=== PATIENT | female | born 1955 | race Caucasian/White ===

== ENCOUNTER 2018-03-15 14:09 | Inpatient (IN) | payer OTHER ==
[2018-03-15] MEDS ORDERED: Sodium Chloride 0.9% 1,000 ML IV ONE ×3 (14:59→20:13)
[2018-03-15] MEDS ORDERED: Sodium Chloride 0.9% 1,000 ML ONE (15:23)
[2018-03-15 15:26] LABS: BASO # 0.1 K/uL (0.0-0.2); BASO % 0.2 % (0.0-2.0); EOS # 0.1 K/uL (0.0-0.7); EOS % 0.2 % (0.0-4.0); HEMOGLOBIN 12.1 g/dL (11.0-16.0); LYMPH # 0.6 K/uL (1.0-4.3); LYMPH % 2.6 % (20.0-40.0); MEAN CELL VOLUME 92.9 fL (81.0-99.0); MEAN CORPUSCULAR HEMOGLOBIN 31.5 pg (27.0-31.0); MEAN CORPUSCULAR HGB CONC 33.9 g/dL (33.0-37.0); MONO # 1.4 K/uL (0.0-0.8); MONO % 6.3 % (0.0-10.0); NEUT # 20.4 K/uL (1.8-7.0); NEUT % 90.7 % (50.0-75.0); PLATELET COUNT 290 K/uL (130-400); RBC 3.85 Mil/uL (3.80-5.20); RED CELL DISTRIBUTION WIDTH 12.2 % (11.5-14.5); WHITE BLOOD COUNT 22.5 K/uL (4.8-10.8)
[2018-03-15 15:41] LABS: CALCIUM 9.4 mg/dl (8.6-10.4); GFR AFRICAN-AMERICAN > 60; GFR NON-AFRICAN AMERICAN > 60; LIPASE 79 U/L (23-300)
--- NOTE | 2018-03-15 15:45 | C.PDOC ---
History Of Present Illness 62-year-old female, presents to the emergency department with complaints of right sided back radiating down the leg and to the right side of her abdomen since this morning at 9am while at work. Pain is associated with non-bloody/non- bilious vomiting. (+) chills . Patient denies fevers, change in bladder/bowel habits, dysuria, urinary frequency, sob, chest pain, or any other associated symptoms. No medication taken for pain. Time Seen by Provider: 03/15/18 14:49 Chief Complaint (Nursing): Abdominal Pain History Per: Patient History/Exam Limitations: no limitations Past Medical History Reviewed: Historical Data, Nursing Documentation, Vital Signs Vital Signs: Last Vital Signs Temp 98.5 F 03/19/18 08:00 Pulse 56 L 03/19/18 08:00 Resp 18 03/19/18 08:00 BP 116/69 03/19/18 08:00 Pulse Ox 95 03/19/18 08:00 Family History: States: No Known Family Hx - Social History Hx Alcohol Use: No Hx Substance Use: No Review Of Systems Constitutional: Negative for: Fever Cardiovascular: Negative for: Chest Pain Respiratory: Negative for: Shortness of Breath Gastrointestinal: Positive for: Vomiting, Abdominal Pain. Negative for: Hematemesis Musculoskeletal: Positive for: Back Pain, Leg Pain Neurological: Negative for: Weakness, Numbness, Headache, Dizziness Physical Exam - Physical Exam Appears: Non-toxic, Other (in painful distress) Skin: Normal Color, Warm, Dry, No Rash Head: Atraumatic, Normacephalic Eye(s): bilateral: Normal Inspection, EOMI Nose: Normal Oral Mucosa: Moist Neck: Normal ROM, Supple Chest: Symmetrical Cardiovascular: Rhythm Regular Respiratory: Normal Breath Sounds, No Accessory Muscle Use Gastrointestinal/Abdominal: Soft, Tenderness (right sided mild) Back: No CVA Tenderness, No Vertebral Tenderness, Paraspinal Tenderness (right paralumbar) Extremity: Normal ROM, Tenderness (right buttock), No Deformity, No Swelling Neurological/Psych: Oriented x3, Normal Speech ED Course And Treatment - Laboratory Results Result Diagrams: 03/19/18 06:30 03/19/18 06:30 O2 Sat by Pulse Oximetry: 99 (RA) Pulse Ox Interpretation: Normal - CT Scan/US CT ABD/PEL Other Rad Studies (CT/US): Read By Radiologist, Radiology Report Reviewed CT/US Interpretation: Accession No. : [id number]. Patient Name / ID : ANDREW PIPER / [id number]. Exam Date : 03/15/2018 15:40:04 ( Approved ). Study Comment : Sex / Age : F / [id number]. Creator : Marly Beckman. Dictator : Giorgi Veras MD. [employer] Officer : Polymerization Engineer : Giorgi Veras MD. Approver2 : Report Date : 03/15/2018 15:45:39. My Comment : . PROCEDURE: CT Abdomen and Pelvis without intravenous contrast. HISTORY: Pain. COMPARISON: None. TECHNIQUE: Contiguous images were obtained from the domes of the diaphragms to the upper thighs without the administration of intravenous contrast. Oral contrast was not administered. Radiation dose: Total exam DLP = 356.9 mGy-cm. This CT exam was performed using one or more of the following dose reduction techniques: Automated exposure control, adjustment of the mA and/ or kV according to patient size, and/or use of iterative reconstruction technique. FINDINGS: LOWER THORAX: Left infrahilar calcified lymph node. Normal heart size. No focal consolidation or pleural effusion. Left lower lobe calcified granuloma. LIVER: Unremarkable. No gross lesion or ductal dilatation. GALLBLADDER AND BILE DUCTS: Unremarkable. PANCREAS: Unremarkable. SPLEEN: Unremarkable. ADRENALS: Unremarkable. KIDNEYS AND URETERS: Right mid/upper pole calyx 6 x 5 x 8 mm calculus causing upper pole calyceal dilatation. Right perinephric stranding. Otherwise, no hydronephrosis. No solid mass. VASCULATURE: Unremarkable. No aortic aneurysm. BOWEL: Unremarkable. No obstruction. No gross mural thickening. APPENDIX: Unremarkable. Normal appendix. PERITONEUM: Unremarkable. No free fluid. No free air. LYMPH NODES: Unremarkable. No enlarged lymph nodes. BLADDER: Unremarkable. REPRODUCTIVE: Unremarkable. BONES: No acute fracture. OTHER FINDINGS: None. IMPRESSION: Right mid/upper pole calyx 6 x 5 x 8 mm calculus causing upper pole caliceal dilatation and perinephric stranding. Progress Note: CT abd/pel, bloodwork, ua/u culture ordered and reviewed. Pt treated with Valium, fluids and Toradol. Case discussed wtih Dr Macedo, agreed upon plan and admission. Requests Lactate as ordered. Disposition - Disposition Disposition: HOSPITALIZED Disposition Time: 18:00 Condition: STABLE - Clinical Impression Clinical Impression: Pyelonephritis - Scribe Statement The provider has reviewed the documentation as recorded by the Scribe (Sebastien Shabazz) All medical record entries made by the Scribe were at my direction and personally dictated by me. I have reviewed the chart and agree that the record accurately reflects my personal performance of the history, physical exam, medical decision making, and the department course for this patient. I have also personally directed, reviewed, and agree with the discharge instructions and disposition.
[2018-03-15 15:51] LABS: BANDS 3 % (0-2); LYMPHOCYTE 1 % (20-40); MONOCYTE 4 % (0-10); NEUTROPHIL 92 % (50-75); TOTAL CELLS COUNTED 100
[2018-03-15 15:52] LABS: PLATELET ESTIMATE NORMAL (NORMAL)
[2018-03-15 15:57] LABS: ALB/GLOB RATIO 0.9 (1.0-2.1); ALT/SGPT 26 U/L (9-52); AST/SGOT 42 U/L (14-36); BLOOD UREA NITROGEN 11 mg/dL (7-17)
--- NOTE | 2018-03-15 16:14 | CT ---
PROCEDURE: CT Abdomen and Pelvis without intravenous contrast HISTORY: Pain COMPARISON: None. TECHNIQUE: Contiguous images were obtained from the domes of the diaphragms to the upper thighs without the administration of intravenous contrast. Oral contrast was not administered. Radiation dose: Total exam DLP = 356.9 mGy-cm. This CT exam was performed using one or more of the following dose reduction techniques: Automated exposure control, adjustment of the mA and/or kV according to patient size, and/or use of iterative reconstruction technique. FINDINGS: LOWER THORAX: Left infrahilar calcified lymph node. Normal heart size. No focal consolidation or pleural effusion. Left lower lobe calcified granuloma. LIVER: Unremarkable. No gross lesion or ductal dilatation. GALLBLADDER AND BILE DUCTS: Unremarkable. PANCREAS: Unremarkable. SPLEEN: Unremarkable ADRENALS: Unremarkable. KIDNEYS AND URETERS: Right mid/upper pole calyx 6 x 5 x 8 mm calculus causing upper pole calyceal dilatation. Right perinephric stranding. Otherwise, no hydronephrosis. No solid mass. VASCULATURE: Unremarkable. No aortic aneurysm. BOWEL: Unremarkable. No obstruction. No gross mural thickening. APPENDIX: Unremarkable. Normal appendix. PERITONEUM: Unremarkable. No free fluid. No free air. LYMPH NODES: Unremarkable. No enlarged lymph nodes. BLADDER: Unremarkable. REPRODUCTIVE: Unremarkable. BONES: No acute fracture. OTHER FINDINGS: None. IMPRESSION: Right mid/upper pole calyx 6 x 5 x 8 mm calculus causing upper pole caliceal dilatation and perinephric stranding.
[2018-03-15 17:19] LABS: SQUAMOUS EPITHIAL 1 /hpf (0-5); URINE BACTERIA RARE (<OCC); URINE BILIRUBIN NEGATIVE (NEGATIVE); URINE BLOOD 2+ (NEGATIVE); URINE CLARITY Hazy (Clear); URINE COLOR Yellow (YELLOW); URINE GLUCOSE (UA) NORMAL (Normal); URINE LEUKOCYTE ESTERASE 3+ Leu/uL (Negative); URINE PROTEIN 1+ mg/dL (NEGATIVE); URINE UROBILINOGEN NORMAL mg/dL (0.2-1.0)
[2018-03-15] MEDS ORDERED: cefTRIAXone IV 1 gm in Dextros 50 ML IV ONE (17:29)
[2018-03-15] MEDS ORDERED: cefTRIAXone IV 1 gm in Dextros 50 ML IVPB ONE (17:43)
[2018-03-15 19:14] LABS: VENOUS BLOOD GAS BASE EXCESS -2.7 mmol/L (0.0-2.0); VENOUS BLOOD GAS PCO2 30 mmHg (40-60); VENOUS BLOOD GAS PO2 59 mm/Hg (30-55); VENOUS BLOOD PH 7.44 (7.32-7.43)
--- NOTE | 2018-03-15 19:27 | CP.PCM.HP ---
<Olive Oconnor - Last Filed: 03/15/18 20:32> History of Present Illness - History of Present Illness History of Present Illness: H&P: 62 year old female with no significant past medical history presented to hospital for right sided mid back pain radiating to right flank and right groin area and down to her leg. Pain began around 9 am suddenly and has been constant since. Pain is associated with NB/NB vomiting x 3 and subjective fevers and chills. Patient denies having symptoms like this in the past. Denies taking any thign for pain or other symptoms at home. Patient has decreased appetite and PO intake since the pain began. She does c/o slight dysuria but denies having any increased urinary frequency. Denies having any CP, SOB, cough, N/V currently, changes in bowel movements, joint pain, sick contact, recent travels. Continues to c/o mild right lower back pain radiating to her groin. PMHx: denies Sx:uterine prolapse sx 20 yrs ago Social: denies tobacco, etoh or drug use Meds: denies NKDA PMD: none Present on Admission - Present on Admission Any Indicators Present on Admission: No Review of Systems - Constitutional Constitutional: Chills, Fever - EENT Eyes: absent: Blurred Vision, Change in Vision Nose/Mouth/Throat: absent: Nasal Congestion, Nasal Discharge - Cardiovascular Cardiovascular: absent: Chest Pain, Dyspnea, Dyspnea on Exertion, Edema - Respiratory Respiratory: absent: Cough, Dyspnea, Dyspnea on Exertion - Gastrointestinal Gastrointestinal: Abdominal Pain, Nausea, Vomiting. absent: Change in Bowel Habits, Constipation, Diarrhea - Genitourinary Genitourinary: Dysuria. absent: Difficulty Urinating, Urinary Frequency - Musculoskeletal Musculoskeletal: Back Pain. absent: Numbness, Tingling - Integumentary Integumentary: absent: Acne, Lesions, Rash, Wounds - Neurological Neurological: absent: Syncope, Tingling, Weakness Past Patient History - Past Social History Smoking Status: Never Smoked Chewing Tobacco Use: No Cigar Use: No Alcohol: None Drugs: Denies Home Situation {Lives}: With Family - PSYCHIATRIC Hx Substance Use: No Meds Allergies/Adverse Reactions: Allergies Allergy/AdvReac Type Severity Reaction Status Date / Time No Known Allergies Allergy Unverified 03/15/18 14:38 Physical Exam - Constitutional Appears: No Acute Distress - Head Exam Head Exam: ATRAUMATIC, NORMOCEPHALIC - Eye Exam Eye Exam: EOMI Pupil Exam: PERRL - ENT Exam ENT Exam: Mucous Membranes Dry - Respiratory Exam Respiratory Exam: Clear to Auscultation Bilateral. absent: Rales, Rhonchi, Wheezes, Respiratory Distress - Cardiovascular Exam Cardiovascular Exam: Tachycardia, REGULAR RHYTHM, +S1, +S2. absent: Diastolic murmur, Gallop, Rubs, Systolic Murmur - GI/Abdominal Exam GI & Abdominal Exam: Normal Bowel Sounds, Soft. absent: Distended, Firm, Guarding, Rigid, Tenderness - Extremities Exam Extremities exam: Negative for: pedal edema, tenderness - Back Exam Back exam: CVA tenderness (R). absent: CVA tenderness (L) - Neurological Exam Neurological exam: Alert, Oriented x3 - Psychiatric Exam Psychiatric exam: Normal Affect, Normal Mood - Skin Skin Exam: Dry, Intact, Normal Color, Warm Results - Vital Signs Recent Vital Signs: Last Vital Signs Temp 102.7 F H 03/15/18 17:51 Pulse 71 03/15/18 14:37 Resp 20 03/15/18 14:37 BP 119/71 03/15/18 14:37 Pulse Ox 99 03/15/18 18:48 - Labs Result Diagrams: 03/15/18 15:20 03/15/18 15:20 Labs: Laboratory Results - last 24 hr 03/15/18 03/15/18 03/15/18 15:20 15:20 16:54 WBC 22.5 H RBC 3.85 Hgb 12.1 Hct 35.8 MCV 92.9 MCH 31.5 H MCHC 33.9 RDW 12.2 Plt Count 290 MPV 8.0 Neut % (Auto) 90.7 H Lymph % (Auto) 2.6 L Vernon % (Auto) 6.3 Eos % (Auto) 0.2 Baso % (Auto) 0.2 Neut # (Auto) 20.4 H Lymph # (Auto) 0.6 L Vernon # (Auto) 1.4 H Eos # (Auto) 0.1 Baso # (Auto) 0.1 Neutrophils % (Manual) 92 H Band Neutrophils % 3 H Lymphocytes % (Manual) 1 L Monocytes % (Manual) 4 Platelet Estimate Normal RBC Morphology Normal pO2 VBG pH VBG pCO2 VBG HCO3 VBG Total CO2 VBG O2 Sat (Calc) VBG Base Excess VBG Potassium Glucose Lactate Sodium 141 Potassium 4.7 Chloride 103 Carbon Dioxide 24 Anion Gap 19 BUN 11 Creatinine 0.8 Est GFR ( Amer) > 60 Est GFR (Non-Af Amer) > 60 Random Glucose 141 H Calcium 9.4 Total Bilirubin 1.2 AST 42 H ALT 26 Alkaline Phosphatase 66 Total Protein 8.6 H Albumin 4.0 Globulin 4.5 H Albumin/Globulin Ratio 0.9 L Lipase 79 Venous Blood Potassium Urine Color Yellow Urine Clarity Hazy Urine pH 8.0 Ur Specific [place] 1.013 Urine Protein 1+ H Urine Glucose (UA) Normal Urine Ketones Negative Urine Blood 2+ H Urine Nitrate Negative Urine Bilirubin Negative Urine Urobilinogen Normal Ur Leukocyte Esterase 3+ H Urine WBC (Auto) 132 H Urine RBC (Auto) 85 H Ur Squamous Epith Cells 1 Urine Bacteria Rare 03/15/18 19:03 WBC RBC Hgb Hct MCV MCH MCHC RDW Plt Count MPV Neut % (Auto) Lymph % (Auto) Vernon % (Auto) Eos % (Auto) Baso % (Auto) Neut # (Auto) Lymph # (Auto) Vernon # (Auto) Eos # (Auto) Baso # (Auto) Neutrophils % (Manual) Band Neutrophils % Lymphocytes % (Manual) Monocytes % (Manual) Platelet Estimate RBC Morphology pO2 59 H VBG pH 7.44 H VBG pCO2 30 L VBG HCO3 22.7 VBG Total CO2 21.3 L VBG O2 Sat (Calc) 95.8 H VBG Base Excess -2.7 L VBG Potassium 3.4 L Glucose 117 H Lactate 3.5 H Sodium 139.0 Potassium Chloride 108.0 H Carbon Dioxide Anion Gap BUN Creatinine Est GFR ( Amer) Est GFR (Non-Af Amer) Random Glucose Calcium Total Bilirubin AST ALT Alkaline Phosphatase Total Protein Albumin Globulin Albumin/Globulin Ratio Lipase Venous Blood Potassium 3.4 L Urine Color Urine Clarity Urine pH Ur Specific [place] Urine Protein Urine Glucose (UA) Urine Ketones Urine Blood Urine Nitrate Urine Bilirubin Urine Urobilinogen Ur Leukocyte Esterase Urine WBC (Auto) Urine RBC (Auto) Ur Squamous Epith Cells Urine Bacteria Assessment & Plan - Assessment and Plan (Free Text) Assessment: 62 year old female with no PMHx is admitted for pyelonephritis 2/[address] scan of abd/pelvis done in ED without contrast showed right upper/mid pole calyx 6x5x8 mm calculus causing upper pole caliceal dilation and perinephric stranding. Patient is noted to have leukocytosis of 22.5 with left shift on presentation. Patient was also febrile with temp of 102.7 in ED and had elevated lactate at 3.5. Pyelonephritis 2/2 obstructed calculus - Clinically, pt has significantly less pain now then on presentation. She did receive toradol in ED. Will repeat CT of abd/pelvis to assess position of the stone now - Urologist, Dr. Lemus is consulted. Spoke with Dr. Lemus over the phone; recommends conservative management at this point with Abx and ID consult. - ID, Dr. Gillette is consulted - Pt received rocephin in ED. - Will start pt on Gentamycin 7.5 mg/kg qd and meropenem 500 mg IV q8 - Will continue NS at 150cc - pain management with morphine 1 mg q4 - tylenol prn for fever - Will await urine and blood cultures. Prophylaxis - Heparin - SCDs - no indication for GI prophylaxis Case discussed with Dr. Winslow. - Date & Time Date: 03/15/18 Time: 19:23 <Chriss Winslow P - Last Filed: 03/16/18 07:48> Results - Vital Signs Recent Vital Signs: Last Vital Signs Temp 98.3 F 03/16/18 00:30 Pulse 82 03/16/18 01:00 Resp 20 03/16/18 00:30 BP 101/64 03/16/18 00:30 Pulse Ox 97 03/16/18 00:30 - Labs Result Diagrams: 03/16/18 07:13 03/15/18 15:20 Labs: Laboratory Results - last 24 hr 03/15/18 03/15/18 03/15/18 15:20 15:20 16:54 WBC 22.5 H RBC 3.85 Hgb 12.1 Hct 35.8 MCV 92.9 MCH 31.5 H MCHC 33.9 RDW 12.2 Plt Count 290 MPV 8.0 Neut % (Auto) 90.7 H Lymph % (Auto) 2.6 L Vernon % (Auto) 6.3 Eos % (Auto) 0.2 Baso % (Auto) 0.2 Neut # (Auto) 20.4 H Lymph # (Auto) 0.6 L Vernon # (Auto) 1.4 H Eos # (Auto) 0.1 Baso # (Auto) 0.1 Neutrophils % (Manual) 92 H Band Neutrophils % 3 H Lymphocytes % (Manual) 1 L Monocytes % (Manual) 4 Platelet Estimate Normal RBC Morphology Normal PT INR APTT pO2 VBG pH VBG pCO2 VBG HCO3 VBG Total CO2 VBG O2 Sat (Calc) VBG Base Excess VBG Potassium Glucose Lactate Sodium 141 Potassium 4.7 Chloride 103 Carbon Dioxide 24 Anion Gap 19 BUN 11 Creatinine 0.8 Est GFR ( Amer) > 60 Est GFR (Non-Af Amer) > 60 Random Glucose 141 H Calcium 9.4 Total Bilirubin 1.2 AST 42 H ALT 26 Alkaline Phosphatase 66 Total Protein 8.6 H Albumin 4.0 Globulin 4.5 H Albumin/Globulin Ratio 0.9 L Lipase 79 Venous Blood Potassium Urine Color Yellow Urine Clarity Hazy Urine pH 8.0 Ur Specific [place] 1.013 Urine Protein 1+ H Urine Glucose (UA) Normal Urine Ketones Negative Urine Blood 2+ H Urine Nitrate Negative Urine Bilirubin Negative Urine Urobilinogen Normal Ur Leukocyte Esterase 3+ H Urine WBC (Auto) 132 H Urine RBC (Auto) 85 H Ur Squamous Epith Cells 1 Urine Bacteria Rare 03/15/18 03/15/18 03/16/18 19:03 20:42 07:13 WBC 25.1 H RBC 3.21 L Hgb 10.2 L Hct 29.9 L MCV 93.1 MCH 31.8 H MCHC 34.2 RDW 12.7 Plt Count 219 MPV 8.4 Neut % (Auto) 87.0 H Lymph % (Auto) 9.0 L Vernon % (Auto) 3.4 Eos % (Auto) 0.2 Baso % (Auto) 0.4 Neut # (Auto) 21.8 H Lymph # (Auto) 2.2 Vernon # (Auto) 0.8 Eos # (Auto) 0.0 Baso # (Auto) 0.1 Neutrophils % (Manual) Band Neutrophils % Lymphocytes % (Manual) Monocytes % (Manual) Platelet Estimate RBC Morphology PT 13.5 H INR 1.2 APTT 32 pO2 59 H VBG pH 7.44 H VBG pCO2 30 L VBG HCO3 22.7 VBG Total CO2 21.3 L VBG O2 Sat (Calc) 95.8 H VBG Base Excess -2.7 L VBG Potassium 3.4 L Glucose 117 H Lactate 3.5 H Sodium 139.0 Potassium Chloride 108.0 H Carbon Dioxide Anion Gap BUN Creatinine Est GFR ( Amer) Est GFR (Non-Af Amer) Random Glucose Calcium Total Bilirubin AST ALT Alkaline Phosphatase Total Protein Albumin Globulin Albumin/Globulin Ratio Lipase Venous Blood Potassium 3.4 L Urine Color Urine Clarity Urine pH Ur Specific [place] Urine Protein Urine Glucose (UA) Urine Ketones Urine Blood Urine Nitrate Urine Bilirubin Urine Urobilinogen Ur Leukocyte Esterase Urine WBC (Auto) Urine RBC (Auto) Ur Squamous Epith Cells Urine Bacteria Attending/Attestation - Attestation I have personally seen and examined this patient.: Yes I have fully participated in the care of the patient.: Yes I have reviewed all pertinent clinical information: Yes Notes (Text): 03/16/18 07:45 Obstructing stone in right upper pole causing distension of calyse, perinephrinc stranding, fever, wbc count, hypotension, on repeat exam the pain tenderness gone, hence repeat ct done showed the calyse not distended any more probably dislodged calculus and drained the kidney. Continue with broad spectrum abx, id consult, echo, urology consult, for possible out patient lithotripsy.
[2018-03-15] MEDS ORDERED: Morphine 4 MG/ML VIAL IVP PRN (20:21)
[2018-03-15] MEDS ORDERED: Gentamicin 80 mg/2mL Inj. IVPB SCH (20:45)
[2018-03-15 20:53] LABS: INR 1.2; PROTHROMBIN TIME 13.5 SECONDS (9.7-12.2)
[2018-03-15] MEDS ORDERED: Gentamicin 500 MG in Sodium Chloride 0.9% 250 ML IVPB SCH (21:15)
[2018-03-15] MEDS ORDERED: Gentamicin 500 MG in Sodium Chloride 0.9% 250 ML IVPB ONE (21:15)
[2018-03-15] MEDS: Sodium Chloride 0.9% 1,000 ML IV SCH (21:35)
[2018-03-15] MEDS ORDERED: Meropenem 500 MG in Sodium Chloride 0.9% 100 ML IVPB SCH (22:00)
[2018-03-15] MEDS ORDERED: Meropenem 1,000 MG in Sodium Chloride 0.9% 100 ML IVPB SCH (23:18)
[2018-03-15] MEDS ORDERED: Meropenem 500 MG in Sodium Chloride 0.9% 100 ML IVPB STA (23:25)
[2018-03-16] MEDS: Sodium Chloride 0.9% 1,000 ML IV SCH ×2 (03:21→10:01)
[2018-03-16] MEDS: Meropenem 1,000 MG in Sodium Chloride 0.9% 100 ML IVPB SCH ×3 (06:05→22:00)
[2018-03-16 07:23] LABS: BASO # 0.1 K/uL (0.0-0.2); BASO % 0.4 % (0.0-2.0); EOS % 0.2 % (0.0-4.0); HEMOGLOBIN 10.2 g/dL (11.0-16.0); LYMPH # 2.2 K/uL (1.0-4.3); MEAN CELL VOLUME 93.1 fL (81.0-99.0); MEAN CORPUSCULAR HEMOGLOBIN 31.8 pg (27.0-31.0); MEAN CORPUSCULAR HGB CONC 34.2 g/dL (33.0-37.0); MEAN PLATELET VOLUME 8.4 fL (7.2-11.7); MONO # 0.8 K/uL (0.0-0.8); MONO % 3.4 % (0.0-10.0); NEUT # 21.8 K/uL (1.8-7.0); PLATELET COUNT 219 K/uL (130-400); RBC 3.21 Mil/uL (3.80-5.20); RED CELL DISTRIBUTION WIDTH 12.7 % (11.5-14.5); WHITE BLOOD COUNT 25.1 K/uL (4.8-10.8)
[2018-03-16 07:55] LABS: ALB/GLOB RATIO 0.9 (1.0-2.1); ALT/SGPT 29 U/L (9-52); AST/SGOT 23 U/L (14-36); BLOOD UREA NITROGEN 15 mg/dL (7-17); CALCIUM 7.9 mg/dl (8.6-10.4); GFR AFRICAN-AMERICAN > 60; GFR NON-AFRICAN AMERICAN 56
--- NOTE | 2018-03-16 08:40 | CT ---
PROCEDURE: CT Abdomen and Pelvis without intravenous contrast HISTORY: nephrolithiasis COMPARISON: None. TECHNIQUE: Multiple contiguous axial images were performed through the abdomen and pelvis without the use of intravenous contrast. Subsequently, sagittal and coronal reformatted images were obtained. Radiation dose: Total exam DLP = 303 mGy-cm. This CT exam was performed using one or more of the following dose reduction techniques: Automated exposure control, adjustment of the mA and/or kV according to patient size, and/or use of iterative reconstruction technique. FINDINGS: LOWER THORAX: Focal thickening of the interlobular septa is noted in the right middle lobe. Hypoventilatory changes noted in the dependent portion of both lungs. Mild scattered areas of nodularity throughout the visualized lung nazario. LIVER: Unremarkable. No gross lesion or ductal dilatation. GALLBLADDER AND BILE DUCTS: Unremarkable. PANCREAS: Unremarkable. No gross lesion or ductal dilatation. SPLEEN: Unremarkable. Accessory spleen measuring 9 millimeters anterior to the spleen and about the splenic hilum. ADRENALS: Unremarkable. No mass. KIDNEYS AND URETERS: 9 millimeter calculus noted in the upper pole of the right kidney with a density measurement of 998. 3 millimeter calcification noted in the right hemipelvis and appears to be within the distal ureter. No gross hydroureter. Mild stranding of the perinephric fat. VASCULATURE: Unremarkable. No aortic aneurysm. BOWEL: Unremarkable. No obstruction. No gross mural thickening. Under distended versus mildly thickened colon. Clinical correlation. APPENDIX: No findings to suggest acute appendicitis. PERITONEUM: Unremarkable. No free fluid. No free air. LYMPH NODES: Few shotty para-aortic and mesenteric lymph nodes. BLADDER: Unremarkable. REPRODUCTIVE: Unremarkable. BONES: No acute fracture. OTHER FINDINGS: Calcified granulomas or areas of fat necrosis are noted in the subcutaneous fat of the left buttock. IMPRESSION: Mild stranding of the right intrarenal and perinephric fat with possible 3 millimeter calculus in the distal right ureter. Very mild asymmetric fullness of the right collecting system as compared to the left. Clinical correlation. 9 millimeter calculus in the upper pole of the right kidney. Focal area of interstitial thickening in the right middle lobe which could represent an acute pneumonitis or area of scarring. Clinical correlation. Under distended versus mildly thickened colon. Clinical correlation. Additional findings as above. These findings were preliminarily reported at 9:54 p.m. on 03/15/[address] Melissa Rainey from [facility].
[2018-03-16 09:36] LABS: BANDS 3 % (0-2); LYMPHOCYTE 9 % (20-40); MONOCYTE 3 % (0-10); NEUTROPHIL 85 % (50-75); PLATELET ESTIMATE NORMAL (NORMAL); TOTAL CELLS COUNTED 100
--- NOTE | 2018-03-16 11:21 | CP.PCM.PN ---
Subjective - Date & Time of Evaluation Date of Evaluation: 03/16/18 Time of Evaluation: 11:16 - Subjective Subjective: 62 year old female admitted to because of right flank pain,pt is afibrile. has no flank pain now. pt has had two ct scans since admisson. 1st shows Large upper pole calculi no hydroureter, the second shows upper pole calculi with possible 3mm lowerureteral calculi . Suggest continue antibiotics,strain all urine continue flomax to facilitate passage.of possible ureteral calculi. Mariah Objective - Vital Signs/Intake and Output Vital Signs (last 24 hours): Temp Pulse Resp BP Pulse Ox 98.5 F 98 H 20 115/71 96 03/16/18 07:54 03/16/18 08:27 03/16/18 07:54 03/16/18 07:54 03/16/18 07:54 - Medications Medications: Current Medications Acetaminophen (Tylenol 325mg Tab) 650 mg PO Q6 PRN PRN Reason: Fever >100.4 F Heparin Sodium (Porcine) (Heparin) 5,000 units SC Q12 [facility] Last Admin: 03/15/18 22:31 Dose: 5,000 units Sodium Chloride (Sodium Chloride 0.9%) 1,000 mls @ 150 mls/hr IV .[id number] [facility] Last Admin: 03/16/18 10:01 Dose: 150 mls/hr Meropenem 1,000 mg/ Sodium (Chloride) 100 mls @ 100 mls/hr IVPB Q8H GRAY PRN Reason: Protocol Last Admin: 03/16/18 06:05 Dose: 100 mls/hr Morphine Sulfate (Morphine) 1 mg IVP Q4H PRN PRN Reason: Pain, moderate (4-7) - Labs Labs: 03/16/18 07:13 03/16/18 07:13 PT 13.5 SECONDS (9.7-12.2) H 03/15/18 20:42 INR 1.2 03/15/18 20:42 APTT 32 SECONDS (21-34) 03/15/18 20:42
--- NOTE | 2018-03-16 13:43 | CP.PCM.PN ---
<Hanna Lipscomb - Last Filed: 03/16/18 14:13> Subjective - Date & Time of Evaluation Date of Evaluation: 03/16/18 Time of Evaluation: 07:00 - Subjective Subjective: PGY1- Medicine Note Patient seen and examined at bedside and in no acute distress. Patient says she is feeling much better. Patient says she is no longer having flank or abdominal pain, but does feel bloated. Patient says the pain has disappeared. Patient has had no vomiting since yesterday when the pain first started and patient denies any nausea or diarrhea. Patient says she is often constipated, but was able to have a small bowel movement this morning. Objective - Vital Signs/Intake and Output Vital Signs (last 24 hours): Temp Pulse Resp BP Pulse Ox 98.5 F 98 H 20 115/71 96 03/16/18 07:54 03/16/18 08:27 03/16/18 07:54 03/16/18 07:54 03/16/18 07:54 - Medications Medications: Current Medications Acetaminophen (Tylenol 325mg Tab) 650 mg PO Q6 PRN PRN Reason: Fever >100.4 F Heparin Sodium (Porcine) (Heparin) 5,000 units SC Q12 [facility] Last Admin: 03/15/18 22:31 Dose: 5,000 units Sodium Chloride (Sodium Chloride 0.9%) 1,000 mls @ 150 mls/hr IV .Q6H40M [facility] Last Admin: 03/16/18 10:01 Dose: 150 mls/hr Meropenem 1,000 mg/ Sodium (Chloride) 100 mls @ 100 mls/hr IVPB Q8H [facility] PRN Reason: Protocol Last Admin: 03/16/18 06:05 Dose: 100 mls/hr Morphine Sulfate (Morphine) 1 mg IVP Q4H PRN PRN Reason: Pain, moderate (4-7) Tamsulosin HCl (Flomax) 0.4 mg PO DAILY [facility] Last Admin: 03/16/18 11:45 Dose: 0.4 mg - Labs Labs: 03/16/18 07:13 03/16/18 07:13 PT 13.5 SECONDS (9.7-12.2) H 03/15/18 20:42 INR 1.2 03/15/18 20:42 APTT 32 SECONDS (21-34) 03/15/18 20:42 - Constitutional Appears: Non-toxic, No Acute Distress - Head Exam Head Exam: ATRAUMATIC, NORMAL INSPECTION, NORMOCEPHALIC - Eye Exam Eye Exam: EOMI, Normal appearance Pupil Exam: NORMAL ACCOMODATION - ENT Exam ENT Exam: Mucous Membranes Moist - Respiratory Exam Respiratory Exam: Clear to Ausculation Bilateral, NORMAL BREATHING PATTERN. absent: Rales, Rhonchi, Wheezes, Respiratory Distress, Stridor - Cardiovascular Exam Cardiovascular Exam: REGULAR RHYTHM, RRR, +S1, +S2. absent: Gallop, Rubs, Murmur - GI/Abdominal Exam GI & Abdominal Exam: Soft, Normal Bowel Sounds. absent: Tenderness (mild discomfort) - Extremities Exam Extremities Exam: Full ROM, Normal Inspection. absent: Pedal Edema - Back Exam Back Exam: absent: CVA tenderness (L), CVA tenderness (R) - Neurological Exam Neurological Exam: Alert, Awake, Oriented x3 - Psychiatric Exam Psychiatric exam: Normal Affect, Normal Mood - Skin Skin Exam: Intact, Normal Color, Warm Assessment and Plan - Assessment and Plan (Free Text) Assessment: Pyelonephritis 2/2 obstructed calculus - Urologist, Dr. Lemus is consulted. Spoke with Dr. Lemus over the phone; recommends conservative management at this point with Abx and ID consult. - patient will need lithotripsy as an outpatient - ID, Dr. Gillette is consulted -f/u blood and urine cultures Meds: - Pt received rocephin in ED. - pt given Gentamycin 7.5 mg/kg qd and meropenem 500 mg IV q8 - as per Dr. Gillette, changed to Meropenem 1000mg iv q8h on 03/16 - pain management with morphine 1 mg q4 - tylenol prn for fever Leukocytosis -uptrending- 25.1 on 03/16 -Meropenem 1000mg iv q8h on 03/16 -f/u blood and urine cultures Chronic Constipation Colace 100mg po bid Prophylaxis - Heparin - SCDs - no indication for GI prophylaxis <Adame,Peter H - Last Filed: 03/16/18 14:59> Objective - Vital Signs/Intake and Output Vital Signs (last 24 hours): Temp Pulse Resp BP Pulse Ox 98.5 F 98 H 20 115/71 96 03/16/18 07:54 03/16/18 08:27 03/16/18 07:54 03/16/18 07:54 03/16/18 07:54 Intake and Output: 03/16/18 03/16/18 06:59 18:59 Intake Total 1180 Balance 1180 - Medications Medications: Current Medications Acetaminophen (Tylenol 325mg Tab) 650 mg PO Q6 PRN PRN Reason: Fever >100.4 F Docusate Sodium (Colace) 100 mg PO BID [facility] Heparin Sodium (Porcine) (Heparin) 5,000 units SC Q12 [facility] Last Admin: 03/15/18 22:31 Dose: 5,000 units Sodium Chloride (Sodium Chloride 0.9%) 1,000 mls @ 150 mls/hr IV .Q6H40M [facility] Stop: 03/16/18 15:00 Last Admin: 03/16/18 10:01 Dose: 150 mls/hr Meropenem 1,000 mg/ Sodium (Chloride) 100 mls @ 100 mls/hr IVPB Q8H [facility] PRN Reason: Protocol Last Admin: 03/16/18 14:00 Dose: 100 mls/hr Morphine Sulfate (Morphine) 1 mg IVP Q4H PRN PRN Reason: Pain, moderate (4-7) Tamsulosin HCl (Flomax) 0.4 mg PO DAILY [facility] Last Admin: 03/16/18 11:45 Dose: 0.4 mg - Labs Labs: 03/16/18 07:13 03/16/18 07:13 PT 13.5 SECONDS (9.7-12.2) H 03/15/18 20:42 INR 1.2 03/15/18 20:42 APTT 32 SECONDS (21-34) 03/15/18 20:42 Attending/Attestation - Attestation I have personally seen and examined this patient.: Yes I have fully participated in the care of the patient.: Yes I have reviewed all pertinent clinical information, including history, physical exam and plan: Yes Notes (Text): 03/16/18 14:59 Medical attending: Patient was seen and examined by me, agree with the above note by the medical education coordinator. Patient was reporting that she was feeling much better. The pain on the right flank had decreased substantially, she reported that she did not have pain per se but some stiffness remained. She still has a very elevated white blood cell count. She did get gentamicin 1. She is being continued on IV meropenem at this moment as well as intravenous fluids. thank you Ha Adame
--- NOTE | 2018-03-16 14:07 | CARD ---
APPROVED REPORT EXAM: Two-dimensional and M-mode echocardiogram with Doppler and color Doppler. Other Information Quality : GoodRhythm : INDICATION Infection:Rule out subacute bacterial endocarditis 2D DIMENSIONS IVSd0.9 (0.7-1.1cm)LVDd4.3 (3.9-5.9cm) PWd1.0 (0.7-1.1cm)LVDs2.2 (2.5-4.0cm) FS (%) 48.9 %LVEF (%)70.0 (>50%) M-Mode DIMENSIONS RVDd1.71 (2.1-3.2cm)Left Atrium (MM)3.47 (2.5-4.0cm) IVSd1.09 (0.7-1.1cm)Aortic Root2.90 (2.2-3.7cm) LVDd4.60 (4.0-5.6cm)Aortic Cusp Exc.2.10 (1.5-2.0cm) PWd0.82 (0.7-1.1cm)FS (%) 44 % LVDs2.59 (2.0-3.8cm)LVEF (%)75 (>50%) Aortic Valve AI P 1/2 [id number] Mitral Valve MV E Wvwucwdy383.2cm/sMV A Ejsnrvea62.1cm/sE/A ratio1.2 TDI E/Lateral E'0.0E/Medial E'0.0 Tricuspid Valve TR Peak Upuspbip990bj/sTR Peak Gr.[id number] LEFT VENTRICLE The left ventricle is normal size. There is normal left ventricular wall thickness. The left ventricular function is normal. The left ventricular ejection fraction is within the normal range. There is normal LV segmental wall motion. The left ventricular diastolic function is normal. RIGHT VENTRICLE The right ventricle is normal size. There is normal right ventricular wall thickness. The right ventricular systolic function is normal. ATRIA The left atrium size is normal. The right atrium size is normal. AORTIC VALVE The aortic valve is moderately thickened. There is mild aortic regurgitation. MITRAL VALVE The mitral valve is moderately thickened. TRICUSPID VALVE There is mild tricuspid regurgitation. There is mild pulmonary hypertension. PULMONIC VALVE There is mild pulmonic valvular regurgitation. GREAT VESSELS The aortic root is normal in size. The IVC is normal in size and collapses >50% with inspiration. PERICARDIAL EFFUSION There is a small circumferential pericardial effusion. <Conclusion> The left ventricle is normal size. There is normal left ventricular wall thickness. The left ventricular function is normal. The left ventricular ejection fraction is within the normal range. There is normal LV segmental wall motion. The aortic valve is moderately thickened. There is mild aortic regurgitation. There is mild tricuspid regurgitation. There is mild pulmonary hypertension. There is a small circumferential pericardial effusion. No vegitation seen
--- NOTE | 2018-03-16 15:06 | CARD ---
APPROVED REPORT EKG Measurement Heart [id number] <Conclusion> Normal sinus rhythm T wave abnormality, consider anterolateral ischemia Abnormal ECG
--- NOTE | 2018-03-16 21:42 | CP.PCM.CON ---
History of Present Illness - History of Present Illness History of Present Illness: dictated Past Patient History - Past Medical History & Family History Past Medical History?: Yes - Past Social History Smoking Status: Never Smoked - CARDIAC Hx Cardiac Disorders: No - PULMONARY Hx Respiratory Disorders: No - NEUROLOGICAL Hx Neurological Disorder: No - HEENT Hx HEENT Problems: No - RENAL Hx Chronic Kidney Disease: No - ENDOCRINE/METABOLIC Hx Endocrine Disorders: No - HEMATOLOGICAL/ONCOLOGICAL Hx Blood Disorders: No - INTEGUMENTARY Hx Dermatological Problems: No - MUSCULOSKELETAL/RHEUMATOLOGICAL Hx Musculoskeletal Disorders: No Hx Falls: No - GASTROINTESTINAL Hx Gastrointestinal Disorders: No - GENITOURINARY/GYNECOLOGICAL Hx Genitourinary Disorders: No - PSYCHIATRIC Hx Psychophysiologic Disorder: No Hx Substance Use: No - SURGICAL HISTORY Hx Surgeries: No - ANESTHESIA Hx Anesthesia: No Meds Allergies/Adverse Reactions: Allergies Allergy/AdvReac Type Severity Reaction Status Date / Time No Known Allergies Allergy Unverified 03/15/18 14:38 - Medications Medications: Current Medications Acetaminophen (Tylenol 325mg Tab) 650 mg PO Q6 PRN PRN Reason: Fever >100.4 F Docusate Sodium (Colace) 100 mg PO BID [facility] Last Admin: 03/16/18 18:21 Dose: 100 mg Heparin Sodium (Porcine) (Heparin) 5,000 units SC Q12 [facility] Last Admin: 03/15/18 22:31 Dose: 5,000 units Meropenem 1,000 mg/ Sodium (Chloride) 100 mls @ 100 mls/hr IVPB Q8H [facility] PRN Reason: Protocol Last Admin: 03/16/18 14:00 Dose: 100 mls/hr Morphine Sulfate (Morphine) 1 mg IVP Q4H PRN PRN Reason: Pain, moderate (4-7) Last Admin: 03/16/18 19:44 Dose: 1 mg Tamsulosin HCl (Flomax) 0.4 mg PO DAILY [facility] Last Admin: 03/16/18 11:45 Dose: 0.4 mg Results - Vital Signs Recent Vital Signs: Last Vital Signs Temp 98.5 F 03/16/18 07:54 Pulse 81 03/16/18 16:00 Resp 18 03/16/18 16:00 BP 121/72 03/16/18 16:00 Pulse Ox 97 03/16/18 16:00 - Labs Result Diagrams: 03/16/18 07:13 03/16/18 07:13 Labs: Laboratory Results - last 24 hr 03/16/18 03/16/18 03/16/18 07:13 07:13 08:24 WBC 25.1 H RBC 3.21 L Hgb 10.2 L Hct 29.9 L MCV 93.1 MCH 31.8 H MCHC 34.2 RDW 12.7 Plt Count 219 MPV 8.4 Neut % (Auto) 87.0 H Lymph % (Auto) 9.0 L Fannin % (Auto) 3.4 Eos % (Auto) 0.2 Baso % (Auto) 0.4 Neut # (Auto) 21.8 H Lymph # (Auto) 2.2 Fannin # (Auto) 0.8 Eos # (Auto) 0.0 Baso # (Auto) 0.1 Neutrophils % (Manual) 85 H Band Neutrophils % 3 H Lymphocytes % (Manual) 9 L Monocytes % (Manual) 3 Platelet Estimate Normal RBC Morphology Normal Sodium 140 Potassium 4.0 Chloride 109 H Carbon Dioxide 21 L Anion Gap 14 BUN 15 Creatinine 1.0 Est GFR ( Amer) > 60 Est GFR (Non-Af Amer) 56 Random Glucose 109 H Lactic Acid 1.7 Calcium 7.9 L Total Bilirubin 0.7 AST 23 ALT 29 Alkaline Phosphatase 52 Total Protein 6.3 Albumin 3.0 L D Globulin 3.3 Albumin/Globulin Ratio 0.9 L
[2018-03-17 08:01] LABS: BASO # 0.1 K/uL (0.0-0.2); BASO % 0.5 % (0.0-2.0); EOS # 0.1 K/uL (0.0-0.7); EOS % 0.4 % (0.0-4.0); HEMOGLOBIN 10.5 g/dL (11.0-16.0); LYMPH # 2.2 K/uL (1.0-4.3); MEAN CELL VOLUME 92.3 fL (81.0-99.0); MEAN CORPUSCULAR HEMOGLOBIN 31.6 pg (27.0-31.0); MEAN CORPUSCULAR HGB CONC 34.2 g/dL (33.0-37.0); MEAN PLATELET VOLUME 8.8 fL (7.2-11.7); MONO # 1.2 K/uL (0.0-0.8); MONO % 8.7 % (0.0-10.0); NEUT # 10.3 K/uL (1.8-7.0); NEUT % 74.4 % (50.0-75.0); RBC 3.31 Mil/uL (3.80-5.20); RED CELL DISTRIBUTION WIDTH 12.2 % (11.5-14.5); WHITE BLOOD COUNT 13.9 K/uL (4.8-10.8)
[2018-03-17 08:21] LABS: ALB/GLOB RATIO 0.9 (1.0-2.1); ALBUMIN 3.2 g/dL (3.5-5.0); ALT/SGPT 47 U/L (9-52); AST/SGOT 45 U/L (14-36); BLOOD UREA NITROGEN 7 mg/dL (7-17); CALCIUM 9.1 mg/dl (8.6-10.4); GFR AFRICAN-AMERICAN > 60; GFR NON-AFRICAN AMERICAN > 60
[2018-03-17] MEDS: Meropenem 1,000 MG in Sodium Chloride 0.9% 100 ML IVPB SCH ×3 (08:37→22:49)
--- NOTE | 2018-03-17 08:39 | CON ---
DATE: The patient is a 62-year-old female. She was admitted with right-sided back pain going to the right flank and right groin, and she says it began around 09:00 a.m. and it was sudden and it was constant. She was having also vomiting, fever, and chills. She has no history of kidney stones in the past, was also having some burning and dysuria and was having frequency. She denies any previous problems like this. She denied any other problems. No chest pain. No shortness of breath. No cough. No recent change in bowel movements or recent travel. It was severe enough to bring her to the hospital. She has had a previous surgery for uterine prolapse 20 years ago. SOCIAL HISTORY: Negative for smoking or drinking or any drug abuse. ALLERGIES: SHE IS NOT ALLERGIC TO ANY MEDICINE. MEDICATIONS: She does not take any medicines. REVIEW OF SYSTEM: She did complain of fever. Denied any ear, nose, throat problems. Denied any chest pain. No shortness of breath. She did have abdominal pain, nausea, and vomiting and right flank pain and difficulty urinating, frequency, and dysuria. She also had severe back pain. No skin problems, otherwise. No psych issues. She was feeling a little better when I went to see her. PHYSICAL EXAMINATION: VITAL SIGNS: T-max was 98.5, pulse 98, blood pressure 121/72, respirations are 18. HEENT: Head is atraumatic, normocephalic. Pupils are reacting to light. Tongue was moist. NECK: Supple. JVP flat. LUNGS: Clear. No crackles or rales present. HEART: S1 and S2 are regular. No murmurs appreciated. ABDOMEN: Soft and nontender. Mild CVA tenderness present on the right side.. No guarding, no rigidity present. EXTREMITIES: Had no edema. LABORATORY DATA: Labs are noted. Labs show white count is 25.1 right now, hemoglobin 10.2, hematocrit 29.9, platelet count is 219, neutrophils are 85, bands are 3. She did get gentamicin 500 mg yesterday, and she is on meropenem, and her bladder and urine cultures are positive for gram-negative rods. Her CAT scan of the abdomen and pelvis was done last night which shows a 9-mm calculus noted in the upper pole of the right kidney with a density in the upper pole, and a 3 mm calcification noted in the right hemipelvis and appears to be within the distal ureter. No gross hydroureter. She has a focal area and thickening of the right middle lobe which could represent acute pneumonitis or area of scarring, so there she has some right middle lobe pneumonitis, underdistended with a mildly thickened colon, and she remains with a high white count. At this time, I am going to add the gentamicin back, but I would give her 80 of gentamicin. She is only 160 pounds, the gentamicin I am going to put her on 80 every 8 hours for now and we will follow. She has gram-negative septicemia, however. The calculus is only 3 mm, and the other bigger one is in the kidney, but she has come with septicemia at this time and clinically looks like right pyelonephritis. We will continue IV antibiotics. Get an echo done, and we will follow. Matthias Gillette MD
--- NOTE | 2018-03-17 11:47 | CP.PCM.PN ---
<Hanna Lipscomb - Last Filed: 03/17/18 16:35> Subjective - Date & Time of Evaluation Date of Evaluation: 03/17/18 Time of Evaluation: 07:00 - Subjective Subjective: PGY1- Medicine Note Patient seen and examined at bedside and in no acute distress. Patient says she is feeling much better. Patient says she is no longer having flank or abdominal pain. Patient says the bloating has decreased since yesterday. Patient has not had a bowel movement since Thursday. Patient denies any nausea or vomiting. Objective - Vital Signs/Intake and Output Vital Signs (last 24 hours): Temp Pulse Resp BP Pulse Ox 98.3 F 63 20 157/78 H 98 03/17/18 08:00 03/17/18 08:00 03/17/18 08:00 03/17/18 08:00 03/17/18 08:00 Intake and Output: 03/17/18 03/17/18 06:59 18:59 Intake Total 1700 Balance 1700 - Medications Medications: Current Medications Acetaminophen (Tylenol 325mg Tab) 650 mg PO Q6 PRN PRN Reason: Fever >100.4 F Last Admin: 03/17/18 01:44 Dose: 650 mg Docusate Sodium (Colace) 100 mg PO BID [facility] Last Admin: 03/17/18 10:28 Dose: 100 mg Heparin Sodium (Porcine) (Heparin) 5,000 units SC Q12 [facility] Last Admin: 03/17/18 10:28 Dose: 5,000 units Meropenem 1,000 mg/ Sodium (Chloride) 100 mls @ 100 mls/hr IVPB Q8H [facility] PRN Reason: Protocol Last Admin: 03/17/18 08:37 Dose: 100 mls/hr Gentamicin Sulfate 80 mg/ (Sodium Chloride) 102 mls @ 100 mls/hr IVPB Q8H [facility] PRN Reason: Protocol Last Admin: 03/17/18 06:10 Dose: 100 mls/hr Morphine Sulfate (Morphine) 1 mg IVP Q4H PRN PRN Reason: Pain, moderate (4-7) Last Admin: 03/16/18 19:44 Dose: 1 mg Tamsulosin HCl (Flomax) 0.4 mg PO DAILY [facility] Last Admin: 03/17/18 10:28 Dose: 0.4 mg - Labs Labs: 03/17/18 07:41 03/17/18 07:41 PT 13.5 SECONDS (9.7-12.2) H 03/15/18 20:42 INR 1.2 03/15/18 20:42 APTT 32 SECONDS (21-34) 03/15/18 20:42 - Additional Findings Additional findings: - Constitutional Appears: Non-toxic, No Acute Distress - Head Exam Head Exam: ATRAUMATIC, NORMAL INSPECTION, NORMOCEPHALIC - Eye Exam Eye Exam: EOMI, Normal appearance Pupil Exam: NORMAL ACCOMODATION - ENT Exam ENT Exam: Mucous Membranes Moist - Respiratory Exam Respiratory Exam: Clear to Ausculation Bilateral, NORMAL BREATHING PATTERN. absent: Rales, Rhonchi, Wheezes, Respiratory Distress, Stridor - Cardiovascular Exam Cardiovascular Exam: REGULAR RHYTHM, RRR, +S1, +S2. absent: Gallop, Rubs, Murmur - GI/Abdominal Exam GI & Abdominal Exam: Soft, Normal Bowel Sounds. absent: Tenderness (mild discomfort) - Extremities Exam Extremities Exam: Full ROM, Normal Inspection. absent: Pedal Edema - Back Exam Back Exam: absent: CVA tenderness (L), CVA tenderness (R) - Neurological Exam Neurological Exam: Alert, Awake, Oriented x3 - Psychiatric Exam Psychiatric exam: Normal Affect, Normal Mood - Skin Skin Exam: Intact, Normal Color, Warm Assessment and Plan - Assessment and Plan (Free Text) Assessment: Pyelonephritis 2/2 obstructed calculus - Urologist, Dr. Lemus is consulted. Spoke with Dr. Lemus over the phone; recommends conservative management at this point with Abx and ID consult. - patient will need lithotripsy as an outpatient - ID, Dr. Gillette is consulted - urine culture: e coli - blood culture: gram neg elisabeth Meds: - Pt received rocephin in ED. - pt given Gentamicin 7.5 mg/kg qd and meropenem 500 mg IV q8 - as per Dr. Gillette, changed to Meropenem 1000mg iv q8h on 03/16 and Gentamicin 80mg q8h (03/17) - pain management with morphine 1 mg q4 - tylenol prn for fever Leukocytosis -downtrending from 25.1 to 13.9 -Meropenem 1000mg iv q8h on 03/16 - urine culture: e coli - blood culture: gram neg elisabeth Chronic Constipation Colace 100mg po bid prune juice BID Prophylaxis - Heparin - SCDs - no indication for GI prophylaxis <Ha Adame H - Last Filed: 03/17/18 18:33> Objective - Vital Signs/Intake and Output Vital Signs (last 24 hours): Temp Pulse Resp BP Pulse Ox 99.3 F 87 20 125/67 98 03/17/18 15:45 03/17/18 16:00 03/17/18 15:45 03/17/18 15:45 03/17/18 15:45 Intake and Output: 03/17/18 03/17/18 06:59 18:59 Intake Total 1700 660 Balance 1700 660 - Medications Medications: Current Medications Acetaminophen (Tylenol 325mg Tab) 650 mg PO Q6 PRN PRN Reason: Fever >100.4 F Last Admin: 03/17/18 01:44 Dose: 650 mg Docusate Sodium (Colace) 100 mg PO BID [facility] Last Admin: 03/17/18 17:39 Dose: 100 mg Heparin Sodium (Porcine) (Heparin) 5,000 units SC Q12 [facility] Last Admin: 03/17/18 10:28 Dose: 5,000 units Meropenem 1,000 mg/ Sodium (Chloride) 100 mls @ 100 mls/hr IVPB Q8H [facility] PRN Reason: Protocol Last Admin: 03/17/18 14:56 Dose: 100 mls/hr Gentamicin Sulfate 80 mg/ (Sodium Chloride) 102 mls @ 100 mls/hr IVPB Q8H [facility] PRN Reason: Protocol Last Admin: 03/17/18 13:40 Dose: 100 mls/hr Morphine Sulfate (Morphine) 1 mg IVP Q4H PRN PRN Reason: Pain, moderate (4-7) Last Admin: 03/16/18 19:44 Dose: 1 mg Tamsulosin HCl (Flomax) 0.4 mg PO DAILY [facility] Last Admin: 03/17/18 10:28 Dose: 0.4 mg - Labs Labs: 03/17/18 07:41 03/17/18 07:41 PT 13.5 SECONDS (9.7-12.2) H 03/15/18 20:42 INR 1.2 03/15/18 20:42 APTT 32 SECONDS (21-34) 03/15/18 20:42 Attending/Attestation - Attestation I have personally seen and examined this patient.: Yes I have fully participated in the care of the patient.: Yes I have reviewed all pertinent clinical information, including history, physical exam and plan: Yes Notes (Text): 03/17/18 18:31 Medical attending: Patient was seen and examined by me. Agree with the above note by the resident She is reporting feeling better than previously. The WBC has decreased to 13 down from 25. On exam there is much less pain and tenderness than before So at this time she remains on IV abx. Eventually in the future she could benefit from lithotrypsy however this would somehow have to be through the [facility] referral. Ha Adame
--- NOTE | 2018-03-17 13:49 | CP.PCM.PN ---
Subjective - Date & Time of Evaluation Date of Evaluation: 03/17/18 Time of Evaluation: 01:40 - Subjective Subjective: dictated Objective - Vital Signs/Intake and Output Vital Signs (last 24 hours): Temp Pulse Resp BP Pulse Ox 98.3 F 63 20 157/78 H 98 03/17/18 08:00 03/17/18 08:00 03/17/18 08:00 03/17/18 08:00 03/17/18 08:00 Intake and Output: 03/17/18 03/17/18 06:59 18:59 Intake Total 1700 Balance 1700 - Medications Medications: Current Medications Acetaminophen (Tylenol 325mg Tab) 650 mg PO Q6 PRN PRN Reason: Fever >100.4 F Last Admin: 03/17/18 01:44 Dose: 650 mg Docusate Sodium (Colace) 100 mg PO BID [facility] Last Admin: 03/17/18 10:28 Dose: 100 mg Heparin Sodium (Porcine) (Heparin) 5,000 units SC Q12 [facility] Last Admin: 03/17/18 10:28 Dose: 5,000 units Meropenem 1,000 mg/ Sodium (Chloride) 100 mls @ 100 mls/hr IVPB Q8H [facility] PRN Reason: Protocol Last Admin: 03/17/18 08:37 Dose: 100 mls/hr Gentamicin Sulfate 80 mg/ (Sodium Chloride) 102 mls @ 100 mls/hr IVPB Q8H [facility] PRN Reason: Protocol Last Admin: 03/17/18 13:40 Dose: 100 mls/hr Morphine Sulfate (Morphine) 1 mg IVP Q4H PRN PRN Reason: Pain, moderate (4-7) Last Admin: 03/16/18 19:44 Dose: 1 mg Tamsulosin HCl (Flomax) 0.4 mg PO DAILY [facility] Last Admin: 03/17/18 10:28 Dose: 0.4 mg - Labs Labs: 03/17/18 07:41 03/17/18 07:41 PT 13.5 SECONDS (9.7-12.2) H 03/15/18 20:42 INR 1.2 03/15/18 20:42 APTT 32 SECONDS (21-34) 03/15/18 20:42
--- NOTE | 2018-03-18 01:51 | PN ---
DATE: SUBJECTIVE: The patient was seen today this afternoon. She was feeling little better. She says her pain in the back was little better. She was, however, constipated and had abdominal fullness and she was worried about it. OBJECTIVE: VITAL SIGNS: T-max was 98.3, pulse 63, blood pressure 157/78, respirations 20, and she was afebrile. HEENT: Head is atraumatic, normocephalic. NECK: Supple. LUNGS: Clear. HEART: S1, S2 is regular. ABDOMEN: Soft. No CVA tenderness present. Bowel sounds are present. EXTREMITIES: Had no edema. LABORATORY DATA: Labs were noted. Labs show white count is 13.9 today, hemoglobin 10.5, hematocrit 30.5, platelet count is 220. The patient's sodium was 142, potassium 3.6, chloride 107, CO2 is 25. Lactic acid is 1.7 yesterday and the blood culture came out positive for gram-negative rods and the urine, it shows E. coli which is Cipro sensitive and meropenem sensitive and gentamicin sensitive but Zosyn is resistant and one blood culture is positive, the second one is negative. ASSESSMENT AND PLAN: The patient is improving on the current medications, however, we will repeat the blood culture tomorrow and if the blood cultures starts to get negative and blood culture reveals the same organism with Cipro sensitivity, then if there is no then she can go home on Cipro p.o. for 2 weeks and she should follow up with the urologist for lithotripsy. The patient has complicated urinary tract infection with pyelonephritis and ureteral stone and need to be followed by the urologist. I am repeating the blood culture tomorrow. For now, we will continue with the gentamicin as well as Merrem. Matthias Gillette MD
[2018-03-18] MEDS: Meropenem 1,000 MG in Sodium Chloride 0.9% 100 ML IVPB SCH ×2 (06:03→14:45)
[2018-03-18 08:51] LABS: BASO % 0.3 % (0.0-2.0); EOS % 0.4 % (0.0-4.0); HEMOGLOBIN 11.9 g/dL (11.0-16.0); LYMPH # 2.3 K/uL (1.0-4.3); MEAN CELL VOLUME 92.2 fL (81.0-99.0); MEAN CORPUSCULAR HGB CONC 34.7 g/dL (33.0-37.0); MEAN PLATELET VOLUME 8.6 fL (7.2-11.7); MONO # 0.8 K/uL (0.0-0.8); NEUT # 6.4 K/uL (1.8-7.0); NEUT % 67.3 % (50.0-75.0); NRBC % 0.1 % (0.0-2.0); RBC 3.7 Mil/uL (3.80-5.20); RED CELL DISTRIBUTION WIDTH 12.3 % (11.5-14.5); WHITE BLOOD COUNT 9.4 K/uL (4.8-10.8)
[2018-03-18 09:09] LABS: ALBUMIN 3.7 g/dL (3.5-5.0); ALT/SGPT 82 U/L (9-52); AST/SGOT 74 U/L (14-36); BLOOD UREA NITROGEN 5 mg/dL (7-17); CALCIUM 9.3 mg/dl (8.6-10.4); GFR AFRICAN-AMERICAN > 60; GFR NON-AFRICAN AMERICAN > 60
[2018-03-18] MEDS ORDERED: Potassium Chloride 20 mEq ER Tab PO ONE ×2 (10:30→14:45)
--- NOTE | 2018-03-18 10:33 | CP.PCM.PN ---
<Hanna Lipscomb - Last Filed: 03/18/18 11:12> Subjective - Date & Time of Evaluation Date of Evaluation: 03/18/18 Time of Evaluation: 07:00 - Subjective Subjective: PGY1- Medicine Note Patient seen and examined at bedside and in no acute distress. Patient says she is feeling much better. Patient says she is no longer having flank or abdominal pain. Patient says the bloating is decreasing and she was able to have a bowel movement after eating prunes and drinking prune juice. Patient denies fevers, chills, chest pain, nausea or vomiting. Objective - Vital Signs/Intake and Output Vital Signs (last 24 hours): Temp Pulse Resp BP Pulse Ox 98.5 F 73 20 113/64 97 03/18/18 07:25 03/18/18 07:35 03/18/18 07:25 03/18/18 07:25 03/18/18 07:25 Intake and Output: 03/18/18 03/18/18 06:59 18:59 Intake Total 820 Balance 820 - Medications Medications: Current Medications Acetaminophen (Tylenol 325mg Tab) 650 mg PO Q6 PRN PRN Reason: Fever >100.4 F Last Admin: 03/17/18 01:44 Dose: 650 mg Docusate Sodium (Colace) 100 mg PO BID [facility] Last Admin: 03/18/18 10:05 Dose: 100 mg Heparin Sodium (Porcine) (Heparin) 5,000 units SC Q12 [facility] Last Admin: 03/18/18 10:05 Dose: 5,000 units Meropenem 1,000 mg/ Sodium (Chloride) 100 mls @ 100 mls/hr IVPB Q8H GRAY PRN Reason: Protocol Last Admin: 03/18/18 06:03 Dose: 100 mls/hr Gentamicin Sulfate 80 mg/ (Sodium Chloride) 102 mls @ 100 mls/hr IVPB Q8H GRAY PRN Reason: Protocol Last Admin: 03/18/18 05:11 Dose: 100 mls/hr Morphine Sulfate (Morphine) 1 mg IVP Q4H PRN PRN Reason: Pain, moderate (4-7) Last Admin: 03/16/18 19:44 Dose: 1 mg Tamsulosin HCl (Flomax) 0.4 mg PO DAILY [facility] Last Admin: 03/18/18 10:05 Dose: 0.4 mg - Labs Labs: 03/18/18 08:43 03/18/18 08:43 PT 13.5 SECONDS (9.7-12.2) H 03/15/18 20:42 INR 1.2 03/15/18 20:42 APTT 32 SECONDS (21-34) 03/15/18 20:42 - Additional Findings Additional findings: - Constitutional Appears: Non-toxic, No Acute Distress - Head Exam Head Exam: ATRAUMATIC, NORMAL INSPECTION, NORMOCEPHALIC - Eye Exam Eye Exam: EOMI, Normal appearance Pupil Exam: NORMAL ACCOMODATION - ENT Exam ENT Exam: Mucous Membranes Moist - Respiratory Exam Respiratory Exam: Clear to Ausculation Bilateral, NORMAL BREATHING PATTERN. absent: Rales, Rhonchi, Wheezes, Respiratory Distress, Stridor - Cardiovascular Exam Cardiovascular Exam: REGULAR RHYTHM, RRR, +S1, +S2. absent: Gallop, Rubs, Murmur - GI/Abdominal Exam GI & Abdominal Exam: Soft, Normal Bowel Sounds. absent: Tenderness (mild discomfort) - Extremities Exam Extremities Exam: Full ROM, Normal Inspection. absent: Pedal Edema - Back Exam Back Exam: absent: CVA tenderness (L), CVA tenderness (R) - Neurological Exam Neurological Exam: Alert, Awake, Oriented x3 - Psychiatric Exam Psychiatric exam: Normal Affect, Normal Mood - Skin Skin Exam: Intact, Normal Color, Warm Assessment and Plan - Assessment and Plan (Free Text) Assessment: Pyelonephritis 2/2 obstructed calculus - Urologist, Dr. Lemus is consulted. Spoke with Dr. Lemus over the phone; recommends conservative management at this point with Abx and ID consult. - patient will need lithotripsy as an outpatient - ID, Dr. Gillette is consulted - urine culture: e coli - blood culture: e coli - repeat blood cultures on 03/18 Meds: - Pt received rocephin in ED. - pt given Gentamicin 7.5 mg/kg qd and meropenem 500 mg IV q8 - as per Dr. Gillette, changed to Meropenem 1000mg iv q8h on 03/16 and Gentamicin 80mg q8h (03/17) - good sensitivity to Meropenem, D/C Gentamicin on 03/18 - stopped morphine 1 mg q4 on 03/18 - tylenol prn for fever Leukocytosis - downtrending from 25.1 to 13.9 to 9.4 - Meropenem 1000mg iv q8h on 03/16 - urine culture: e coli - blood culture: gram neg elisabeth Chronic Constipation -Colace 100mg po bid -prune juice BID Hypokalemia -K 3.3, KDUR 40meq po given Prophylaxis - Heparin - SCDs - no indication for GI prophylaxis <Ha Adame - Last Filed: 03/18/18 19:08> Objective - Vital Signs/Intake and Output Vital Signs (last 24 hours): Temp Pulse Resp BP Pulse Ox 98.5 F 64 20 136/81 98 03/18/18 16:40 03/18/18 16:40 03/18/18 16:40 03/18/18 16:40 03/18/18 16:40 Intake and Output: 03/18/18 03/19/18 18:59 06:59 Intake Total 590 Balance 590 - Medications Medications: Current Medications Acetaminophen (Tylenol 325mg Tab) 650 mg PO Q6 PRN PRN Reason: Fever >100.4 F Last Admin: 03/17/18 01:44 Dose: 650 mg Docusate Sodium (Colace) 100 mg PO BID [facility] Last Admin: 03/18/18 17:54 Dose: 100 mg Heparin Sodium (Porcine) (Heparin) 5,000 units SC Q12 [facility] Last Admin: 03/18/18 10:05 Dose: 5,000 units Meropenem 1,000 mg/ Sodium (Chloride) 100 mls @ 100 mls/hr IVPB Q8H [facility] PRN Reason: Protocol Last Admin: 03/18/18 14:45 Dose: 100 mls/hr Tamsulosin HCl (Flomax) 0.4 mg PO DAILY [facility] Last Admin: 03/18/18 10:05 Dose: 0.4 mg - Labs Labs: 03/18/18 08:43 03/18/18 08:43 PT 13.5 SECONDS (9.7-12.2) H 03/15/18 20:42 INR 1.2 03/15/18 20:42 APTT 32 SECONDS (21-34) 03/15/18 20:42 Attending/Attestation - Attestation I have personally seen and examined this patient.: Yes I have fully participated in the care of the patient.: Yes I have reviewed all pertinent clinical information, including history, physical exam and plan: Yes Notes (Text): 03/18/18 19:08 Medical attending: Patient was seen and examined by me. Agree with the above note by the medical staff services coordinator. At this moment the patient remains on IV antibiotics she is currently on gentamicin as well as meropenem. The cultures of both the urine and the blood shows Escherichia coli 5/14 and has a lot of sensitivity to many antibiotics. Her white blood cell count is decreasing, the patient reports that her flank pain has resolved. She denied having any difficulty urinating. She says that overall she feels better Thank you very much, Ha Adame
[2018-03-19] MEDS: Meropenem 1,000 MG in Sodium Chloride 0.9% 100 ML IVPB SCH ×2 (00:15→06:27)
[2018-03-19 06:36] LABS: BASO # 0.1 K/uL (0.0-0.2); BASO % 0.6 % (0.0-2.0); EOS # 0.1 K/uL (0.0-0.7); EOS % 0.7 % (0.0-4.0); HEMOGLOBIN 11.9 g/dL (11.0-16.0); LYMPH # 2.5 K/uL (1.0-4.3); LYMPH % 26.7 % (20.0-40.0); MEAN CELL VOLUME 92.1 fL (81.0-99.0); MEAN CORPUSCULAR HEMOGLOBIN 31.6 pg (27.0-31.0); MEAN CORPUSCULAR HGB CONC 34.3 g/dL (33.0-37.0); MEAN PLATELET VOLUME 8.1 fL (7.2-11.7); MONO % 11.2 % (0.0-10.0); NEUT # 5.6 K/uL (1.8-7.0); NEUT % 60.8 % (50.0-75.0); RBC 3.77 Mil/uL (3.80-5.20); RED CELL DISTRIBUTION WIDTH 11.9 % (11.5-14.5); WHITE BLOOD COUNT 9.2 K/uL (4.8-10.8)
[2018-03-19 06:59] LABS: ALBUMIN 3.7 g/dL (3.5-5.0); ALT/SGPT 59 U/L (9-52); AST/SGOT 43 U/L (14-36); BLOOD UREA NITROGEN 5 mg/dL (7-17); CALCIUM 9.4 mg/dl (8.6-10.4); GFR AFRICAN-AMERICAN > 60; GFR NON-AFRICAN AMERICAN > 60
[2018-03-19 08:18] VITALS: BP 116/69; PULSE 56; RESP 18; TEMP 98.5
[2018-03-19] MEDS ORDERED: Ciprofloxacin 400mg/200ml D5W 400 MG/200 ML BAG IVPB SCH (15:15)
--- NOTE | 2018-03-19 16:33 | CP.PCM.DIS ---
Provider - Provider Date of Admission: 03/15/18 17:30 Attending physician: Chriss Winslow MD Hospital Course - Lab Results Lab Results: Micro Results 03/18/18 08:35 Blood-Venous Blood Culture - Preliminary NO GROWTH AFTER 24 HOURS 03/18/18 08:10 Blood-Venous Blood Culture - Preliminary NO GROWTH AFTER 24 HOURS 03/15/18 17:00 Blood Blood Culture - Preliminary NO GROWTH AFTER 3 DAYS 03/15/18 17:30 Blood Blood Culture - Final Escherichia Coli 03/15/18 17:30 Blood Gram Stain - Final 03/15/18 16:54 Urine Urine Culture - Final Escherichia Coli Most Recent Lab Values WBC 9.2 K/uL (4.8-10.8) 03/19/18 06:30 RBC 3.77 Mil/uL (3.80-5.20) L 03/19/18 06:30 Hgb 11.9 g/dL (11.0-16.0) 03/19/18 06:30 Hct 34.8 % (34.0-47.0) 03/19/18 06:30 MCV 92.1 fL (81.0-99.0) 03/19/18 06:30 MCH 31.6 pg (27.0-31.0) H 03/19/18 06:30 MCHC 34.3 g/dL (33.0-37.0) 03/19/18 06:30 RDW 11.9 % (11.5-14.5) 03/19/18 06:30 Plt Count 267 K/uL (130-400) 03/19/18 06:30 MPV 8.1 fL (7.2-11.7) 03/19/18 06:30 Neut % (Auto) 60.8 % (50.0-75.0) 03/19/18 06:30 Lymph % (Auto) 26.7 % (20.0-40.0) 03/19/18 06:30 [place] % (Auto) 11.2 % (0.0-10.0) H 03/19/18 06:30 Eos % (Auto) 0.7 % (0.0-4.0) 03/19/18 06:30 Baso % (Auto) 0.6 % (0.0-2.0) 03/19/18 06:30 Neut # (Auto) 5.6 K/uL (1.8-7.0) 03/19/18 06:30 Lymph # (Auto) 2.5 K/uL (1.0-4.3) 03/19/18 06:30 [place] # (Auto) 1.0 K/uL (0.0-0.8) H 03/19/18 06:30 Eos # (Auto) 0.1 K/uL (0.0-0.7) 03/19/18 06:30 Baso # (Auto) 0.1 K/uL (0.0-0.2) 03/19/18 06:30 Neutrophils % (Manual) 85 % (50-75) H 03/16/18 07:13 Band Neutrophils % 3 % (0-2) H 03/16/18 07:13 Lymphocytes % (Manual) 9 % (20-40) L 03/16/18 07:13 Monocytes % (Manual) 3 % (0-10) 03/16/18 07:13 Platelet Estimate Normal (NORMAL) 03/16/18 07:13 RBC Morphology Normal 03/16/18 07:13 PT 13.5 SECONDS (9.7-12.2) H 03/15/18 20:42 INR 1.2 03/15/18 20:42 APTT 32 SECONDS (21-34) 03/15/18 20:42 pO2 59 mm/Hg (30-55) H 03/15/18 19:03 VBG pH 7.44 (7.32-7.43) H 03/15/18 19:03 VBG pCO2 30 mmHg (40-60) L 03/15/18 19:03 VBG HCO3 22.7 mmol/L 03/15/18 19:03 VBG Total CO2 21.3 mmol/L (22-28) L 03/15/18 19:03 VBG O2 Sat (Calc) 95.8 % (40-65) H 03/15/18 19:03 VBG Base Excess -2.7 mmol/L (0.0-2.0) L 03/15/18 19:03 VBG Potassium 3.4 mmol/L (3.6-5.2) L 03/15/18 19:03 Sodium 139.0 mmol/l (132-148) 03/15/18 19:03 Chloride 108.0 mmol/L (98-107) H 03/15/18 19:03 Glucose 117 mg/dl (65-105) H 03/15/18 19:03 Lactate 3.5 mmol/L (0.7-2.1) H 03/15/18 19:03 Sodium 142 mmol/L (132-148) 03/19/18 06:30 Potassium 4.1 mmol/L (3.6-5.2) 03/19/18 06:30 Chloride 106 mmol/L (98-107) 03/19/18 06:30 Carbon Dioxide 25 mmol/L (22-30) 03/19/18 06:30 Anion Gap 15 (10-20) 03/19/18 06:30 BUN 5 mg/dL (7-17) L 03/19/18 06:30 Creatinine 0.9 mg/dL (0.7-1.2) 03/19/18 06:30 Est GFR ( Amer) > 60 03/19/18 06:30 Est GFR (Non-Af Amer) > 60 03/19/18 06:30 Random Glucose 112 mg/dL (65-105) H 03/19/18 06:30 Lactic Acid 1.7 mmol/L (0.7-2.1) 03/16/18 08:24 Calcium 9.4 mg/dl (8.6-10.4) 03/19/18 06:30 Phosphorus 3.1 mg/dL (2.5-4.5) 03/19/18 06:30 Magnesium 2.0 mg/dL (1.6-2.3) 03/19/18 06:30 Total Bilirubin 0.5 mg/dL (0.2-1.3) 03/19/18 06:30 AST 43 U/L (14-36) H D 03/19/18 06:30 ALT 59 U/L (9-52) H D 03/19/18 06:30 Alkaline Phosphatase 88 U/L (38-126) 03/19/18 06:30 Total Protein 7.6 g/dL (6.3-8.3) 03/19/18 06:30 Albumin 3.7 g/dL (3.5-5.0) 03/19/18 06:30 Globulin 3.9 gm/dL (2.2-3.9) 03/19/18 06:30 Albumin/Globulin Ratio 1.0 (1.0-2.1) 03/19/18 06:30 Lipase 79 U/L (23-300) 03/15/18 15:20 Venous Blood Potassium 3.4 mmol/L (3.6-5.2) L 03/15/18 19:03 Urine Color Yellow (YELLOW) 03/15/18 16:54 Urine Clarity Hazy (Clear) 03/15/18 16:54 Urine pH 8.0 (5.0-8.0) 03/15/18 16:54 Ur Specific [place] 1.013 (1.003-1.030) 03/15/18 16:54 Urine Protein 1+ mg/dL (NEGATIVE) H 03/15/18 16:54 Urine Glucose (UA) Normal mg/dL (Normal) 03/15/18 16:54 Urine Ketones Negative mg/dL (NEGATIVE) 03/15/18 16:54 Urine Blood 2+ (NEGATIVE) H 03/15/18 16:54 Urine Nitrate Negative (NEGATIVE) 03/15/18 16:54 Urine Bilirubin Negative (NEGATIVE) 03/15/18 16:54 Urine Urobilinogen Normal mg/dL (0.2-1.0) 03/15/18 16:54 Ur Leukocyte Esterase 3+ Nancie/uL (Negative) H 03/15/18 16:54 Urine WBC (Auto) 132 /hpf (0-5) H 03/15/18 16:54 Urine RBC (Auto) 85 /hpf (0-3) H 03/15/18 16:54 Ur Squamous Epith Cells 1 /hpf (0-5) 03/15/18 16:54 Urine Bacteria Rare (<OCC) 03/15/18 16:54 - Hospital Course Hospital Course: Patient was admitted for Pyelonephritis secondary to obstructed calculus. CT of the Abdomen/Pelvis showed Right Mid/Upper Pole Calyx 6 x 5 x 8 mm calculus causing upper pole calyceal dilatation, Right perinephric stranding, no hydronephrosis, no solid mass. Patient was given Rocephin in ED. A repeat CT of the abdomen/pelvis showed Mild Stranding of the right intrarenal and perinephric fat with possible 3 mm calculus in the distal ureter. Very mild asymmetric fullness of the right collecting system as compared to the left. Clinical correlation, 9 mm calculus in the upper pole of the right kidney. Dr. Lemus from Urology was consulted and recommended conservative management with antibiotics and ID consult. Patient was told that she will need lithotripsy as an outpatient. Dr. Gillette from Infectious Disease was consulted. A urine and blood culture was done and was positive for E. Coli. During his admission the patient's leukocytosis was downtrending from 25.1 to 13.9 to 9.4. During his admission the patient's leukocytosis was downtrending from 25.1 to 13.9 to 9.4. During the admission patient was given Gentamicin 7.5 mg/kg and Meropenem 500 mg IV Q8. On 03/16, the Meropenem was changed to 1000 mg IV Q8 as per Dr. Gillette. On 03/17 Gentamicin was increased to 80 mg Q8H as per Dr. Gillette. On , patient exhibited good sensitivity to Meropenem and Gentamicin and Morphine was discontinued. Repeat cultures on 03/18 came back negative. Patient was also on Tylenol PRN for fever. Patient sent home on Cipro which exhibited good sensitivity to both blood and urine cultures. The patient was given colace 100 mg PO BID and prune juice BID for chronic constipation. During the admission was found to have potassium of 3.3 and was treated KDUR 40meq PO. For prophylaxis, the patient was treated with Heparin 5000 units Q12 and SCD's for DVTs. There was no indication for GI Prophylaxis Upon discharge patient's pain had completely resolved. This is a summary of the patient's hospital course, please see chart for details. Discharge Exam - Head Exam Head Exam: ATRAUMATIC, NORMAL INSPECTION, NORMOCEPHALIC Discharge Plan - Discharge Medications Prescriptions: Ciprofloxacin [Cipro] 500 mg PO BID #20 tab Tamsulosin [Flomax] 0.4 mg PO DAILY #14 cap - Follow Up Plan Condition: GOOD Disposition: HOME/ ROUTINE Instructions: Ciprofloxacin (Systemic), Urinary Tract Infection, Adult (DC), Tamsulosin Additional Instructions: Patient stable for discharge as per Dr. Adame and Dr. Gillette. Patient will need to call Dr. Lemus to make an appointment within the next 1-2 weeks. Patient will need to take Ciprofloxacin 500mg twice a day for 10 days. Patient to continue taking Flomax .4mg once a day. Patient to continue eating prunes and drinking prune juice as needed for constipation. Patient to please return to Emergency Room if symptoms return. Patient explained instructions who understands and agrees. El paciente es estable para el kati segn el Dr. Adame y el Dr. Gillette. El paciente deber llamar al Dr. Lemus para hacer aysha dyllan dentro de las pr ximas 1-2 semanas. El paciente deber urbano Ciprofloxacino 500 mg dos veces al da donna 10 saldivar. Paciente para continuar tomando Flomax .4mg aysha vez al da. Paciente para continuar comiendo ciruelas pasas y beber jugo de ciruela, segn sea necesario para el estreimiento. Paciente que por favor regrese a la [facility] si los sntomas regresan. Referrals: [facility] [Provider Group] [facility] [Provider Group] Poncho Lemus Jr., MD [Staff Provider] -
[2018-03-19 20:44] VITALS: O2SAT 99
--- NOTE | 2018-03-22 03:19 | CON ---
DATE: 03/16/2018 REASON FOR THE CONSULTATION: Kidney stones. HISTORY OF PRESENT ILLNESS: This is a 62-year-old female, admitted to [facility] because of right flank pain. The patient has no fever and no flank pain right now. She states that she had flank pain before. She has had two CAT scans since in the [facility], one shows a large upper pole , no hydroureter, the second shows an upper pole with possible 3-mm lower ureteral stone without hydronephrosis. The patient has been afebrile since admission and white count is 9.2. She denies any prior history of kidney stones. PHYSICAL EXAMINATION: VITAL SIGNS: The patient is afebrile. GENERAL: Awake, alert, oriented x3. HEAD, EARS, EYES, NOSE AND THROAT: Within normal limits. NECK: Supple. There are no bruits, nodes or masses. CHEST: Clear bilaterally. There are no rales or rhonchi. HEART: Normal sinus rhythm. ABDOMEN: Soft and nontender. There are no masses or organomegaly. GENITOURINARY: Vaginal examination was declined by the patient. EXTREMITIES: Normal. LABORATORY DATA: I have also reviewed the laboratory data, CAT scan films and reports. IMPRESSION: Right renal calculi. PLAN: Suggest the following; the patient is having no pain, at this present suggest the patient be treated with broad spectrum gram-negative antibiotics until cultures are known. The patient be referred to urologist for further care of her renal calculi. Poncho Lemus MD
== END 2018-03-19 15:16 | disposition home or self-care (01) | DRG 323 ==
LOC: C.ER 14:09 → C.9E 17:30 → C.5S 23:07
PROVIDERS: ADMIT Internal Medicine; ATTEND Internal Medicine
DX: N20.2 Calculus of kidney with calculus of ureter (principal); N10 Acute pyelonephritis; E87.6 Hypokalemia; K59.09 Other constipation; B96.20 Unspecified Escherichia coli [E. coli] as the cause of diseases classified elsewhere